=== PATIENT | female | born 1980 | race Caucasian/White ===

== ENCOUNTER 2016-04-24 14:10 | Emergency (ER) | payer OTHER ==
[~2016-04-24] VITALS: Ht 162.6 cm; Wt 59.1 kg
[2016-04-24 14:22] VITALS: TEMP 98.6
[2016-04-24] MEDS ORDERED: KEPPRA 500MG500 MG PO (14:28)
[2016-04-24 16:20] LABS: BASO % 0.3 % (0.0-2.0); GRAN # 5.2 (1.4-6.5); GRAN % 73.3 % (42.2-75.2); HEMATOCRIT 38.2 % (37.0-47.0); HEMOGLOBIN 13.5 g/dl (12.5-16.0); LYMPH # 1.5 (1.2-3.4); LYMPH % 21.5 % (20.0-51.0); MEAN CELL VOLUME 91 fl (80.0-100.0); MEAN CORPUSCULAR HEMOGLOBIN 32 pg (27.0-31.0); MEAN CORPUSCULAR HGB CONC 35 g/dl (33.0-37.0); MEAN PLATELET VOLUME 10.7 fl (7.4-10.4); MONO # 0.3 (0.1-0.6); MONO % 4.6 % (1.7-9.3); PLATELET COUNT 151 K/mm3 (130-400); RED BLOOD COUNT 4.21 M/mm3 (4.10-5.30); REDCELL DISTRIBUTION WIDTH-CV 11.5 % (11.5-14.5); WHITE BLOOD COUNT 7.2 K/mm3 (4.8-10.8)
[2016-04-24 16:31] LABS: ALANINE AMINOTRANSFERASE 48 U/L (9-52); ALBUMIN 5.3 gm/dL (3.5-5.0); ALKALINE PHOSPHATASE 54 U/L (50-136); ANION GAP 16 mmol/L (7-16); BILIRUBIN,TOTAL 1.3 mg/dL (0.0-1.0); BLOOD UREA NITROGEN 14 mg/dL (7-17); CARBON DIOXIDE 27 mmol/L (22-30); CHLORIDE 99 mmol/L (98-107); CREATININE, serum 0.82 mg/dL (0.52-1.25); GLUCOSE 96 mg/dL (74-106); POTASSIUM 3.5 mmol/L (3.4-5.0); SODIUM 141 mmol/L (137-145); TOTAL PROTEIN 8.7 gm/dL (6.4-8.2)
[2016-04-24 16:32] LABS: C-REACTIVE PROTEIN < 0.5 mg/dL (0.0-0.9)
[2016-04-24 17:39] VITALS: BP 113/80; PULSE 77
== END 2016-04-24 17:40 | disposition home or self-care (01) ==
LOC: COL.ER 14:10
PROVIDERS: Emergency Medicine
DX: H53.9 Unspecified visual disturbance (principal); R51 Headache; G40.909 Epilepsy, unspecified, not intractable, without status epilepticus

== ENCOUNTER → 2019-06-21 | Outpatient (CLI) | payer OTHER ==
[~2019-06-21] MED LIST: KEPPRA 500MG500 MG PO
== END ==
LOC: COL.RAD 14:16
DX: R56.9 Unspecified convulsions (principal)
CPT/HCPCS: A9585

== ENCOUNTER 2019-06-27 19:45 | Emergency (ER) | payer OTHER ==
[~2019-06-27] VITALS: Ht 157.5 cm; Wt 56.8 kg
[2019-06-27 19:50] VITALS: TEMP 97.1
[2019-06-27 20:27] LABS: BASO % 0.3 % (0.0-2.0); EOS # 0.1 (0.0-0.7); EOS % 0.9 % (0-4.0); GRAN # 3.9 (1.4-6.5); GRAN % 56.2 % (42.2-75.2); HEMATOCRIT 37.6 % (37.0-47.0); HEMOGLOBIN 12.8 g/dl (12.5-16.0); LYMPH # 2.5 (1.2-3.4); MEAN CELL VOLUME 92 fl (80.0-100.0); MEAN CORPUSCULAR HEMOGLOBIN 31 pg (27.0-31.0); MEAN CORPUSCULAR HGB CONC 34 g/dl (33.0-37.0); MEAN PLATELET VOLUME 11.2 fl (7.4-10.4); MONO # 0.5 (0.1-0.6); MONO % 6.5 % (1.7-9.3); PLATELET COUNT 142 K/mm3 (130-400); RED BLOOD COUNT 4.08 M/mm3 (4.10-5.30); REDCELL DISTRIBUTION WIDTH-CV 11.7 % (11.5-14.5)
[2019-06-27 20:32] LABS: ALANINE AMINOTRANSFERASE 26 U/L (9-52); ALBUMIN 5.3 gm/dL (3.5-5.0); ALKALINE PHOSPHATASE 78 U/L (50-136); ANION GAP 12 mmol/L (7-16); AST,SGOT 37 U/L (15-37); BILIRUBIN,TOTAL 0.7 mg/dL (0.0-1.0); BLOOD UREA NITROGEN 19 mg/dL (7-17); CALCIUM 9.4 mg/dL (8.4-10.2); CARBON DIOXIDE 27 mmol/L (22-30); CHLORIDE 100 mmol/L (98-107); CREATININE, serum 0.71 (0.52-1.25); GLUCOSE 104 mg/dL (74-106); POTASSIUM 3.7 mmol/L (3.4-5.0); SODIUM 140 mmol/L (137-145); TOTAL PROTEIN 8.6 gm/dL (6.4-8.2)
[2019-06-27 20:33] LABS: C-REACTIVE PROTEIN < 0.5 mg/dL (0.0-0.9)
[2019-06-27 20:45] LABS: PROLACTIN 75.7 ng/mL (3.0-18.6)
[2019-06-27 22:54] VITALS: BP 106/65; PULSE 82
== END 2019-06-27 22:57 | disposition home or self-care (01) ==
LOC: COL.ER 19:45
PROVIDERS: Emergency Medicine
DX: G40.909 Epilepsy, unspecified, not intractable, without status epilepticus (principal)
CPT/HCPCS: J1953; J2060; J7030

== ENCOUNTER 2019-07-03 17:18 | Emergency (ER) | payer OTHER ==
[~2019-07-03] VITALS: Ht 157.5 cm; Wt 59.1 kg
[2019-07-03 17:33] VITALS: BP 114/71; TEMP 97.6
[2019-07-03 18:18] LABS: CALCIUM 9.5 mg/dL (8.4-10.2); CREATININE, serum 0.58 (0.52-1.25); POTASSIUM 3.7 mmol/L (3.4-5.0)
[2019-07-03 19:46] VITALS: PULSE 69
== END 2019-07-03 19:46 | disposition home or self-care (01) ==
LOC: COL.ER 17:18
PROVIDERS: Emergency Medicine
DX: G40.909 Epilepsy, unspecified, not intractable, without status epilepticus (principal)

== ENCOUNTER → 2019-08-06 | Outpatient (CLI) | payer OTHER | LOC: COL.CARD 09:40 | DX: G40.B09 Juvenile myoclonic epilepsy, not intractable, without status epilepticus (principal) ==

== ENCOUNTER → 2020-05-08 | Outpatient (CLI) | payer OTHER | LOC: COL.LAB 12:14 | DX: R06.02 Shortness of breath (principal) ==

== ENCOUNTER 2020-06-02 14:23 | Emergency (ER) | payer OTHER ==
[~2020-06-02] VITALS: Ht 160 cm; Wt 62.7 kg
[2020-06-02 14:31] VITALS: TEMP 98.3
[2020-06-02 15:03] LABS: BASO % 0.6 % (0.0-2.0); GRAN # 1.9 (1.4-6.5); GRAN % 53.8 % (42.2-75.2); HEMATOCRIT 38.3 % (37.0-47.0); HEMOGLOBIN 13.5 g/dl (12.5-16.0); LYMPH # 1.3 (1.2-3.4); LYMPH % 37.5 % (20.0-51.0); MEAN CELL VOLUME 93 fl (80.0-100.0); MEAN CORPUSCULAR HEMOGLOBIN 33 pg (27.0-31.0); MEAN CORPUSCULAR HGB CONC 35 g/dl (33.0-37.0); MEAN PLATELET VOLUME 11.2 fl (7.4-10.4); MONO # 0.3 (0.1-0.6); MONO % 8.1 % (1.7-9.3); PLATELET COUNT 110 K/mm3 (130-400); RED BLOOD COUNT 4.12 M/mm3 (4.10-5.30); REDCELL DISTRIBUTION WIDTH-CV 11.7 % (11.5-14.5)
[2020-06-02 15:15] LABS: ALANINE AMINOTRANSFERASE 16 U/L (4-34); ALBUMIN 5.1 gm/dL (3.5-5.0); ALKALINE PHOSPHATASE 34 U/L (50-136); ANION GAP 13 mmol/L (7-16); AST,SGOT 22 U/L (15-37); BILIRUBIN,TOTAL 0.9 mg/dL (0.0-1.0); BLOOD UREA NITROGEN 17 mg/dL (7-17); CALCIUM 9.5 mg/dL (8.4-10.2); CARBON DIOXIDE 27 mmol/L (22-30); CHLORIDE 101 mmol/L (98-107); GLUCOSE 90 mg/dL (74-106); POTASSIUM 3.8 mmol/L (3.4-5.0); SODIUM 141 mmol/L (137-145)
[2020-06-02 15:38] LABS: TROPONIN-I < 0.012 ng/mL (0.000-0.035)
[2020-06-02 15:52] LABS: PHENYTOIN (DILANTIN) < 3.0 ug/mL (10.0-20.0)
[2020-06-02 15:53] LABS: VALPROIC ACID (DEPAKENE) 102.6 ug/mL (50.0-100.0)
[2020-06-02 16:09] VITALS: BP 111/71; PULSE 65
== END 2020-06-02 16:12 | disposition home or self-care (01) ==
LOC: COL.ER 14:23
PROVIDERS: Emergency Medicine
DX: G40.909 Epilepsy, unspecified, not intractable, without status epilepticus (principal); Z88.8 Allergy status to other drugs, medicaments and biological substances
CPT/HCPCS: J7030

== ENCOUNTER → 2020-07-09 | Outpatient (CLI) | payer OTHER | LOC: COL.RAD 07-08 07:30 | DX: G40.309 Generalized idiopathic epilepsy and epileptic syndromes, not intractable, without status epilepticus (principal) | CPT/HCPCS: A9585 ==